=== PATIENT | female | born 1980 | race American Indian/Alaskan Native ===

== ENCOUNTER 2019-06-24 05:15 | Inpatient (IN) | payer MEDICAID ==
[2019-06-24] MEDS ORDERED: BICITRA ORAL LIQD 30ML PO ONE (05:43)
[2019-06-24] MEDS ORDERED: FAMOTIDINE 20 MG/2 ML INJ IV ONE (05:43)
[2019-06-24] MEDS ORDERED: METOCLOPRAMIDE 10 MG/2 ML INJ IV ONE (05:43)
[2019-06-24] MEDS ORDERED: OXYTOCIN 20 UNIT/1000ML DRIP 20 UNITS/1,000 ML BAG IV SCH ×2 (06:00→10:00)
[2019-06-24] MEDS ORDERED: ceFAZolin/Water 2 GM/20 ML 2 GM/20 ML SYRINGE IV NR (06:00)
[2019-06-24] MEDS ORDERED: LACTATED RINGERS 1,000 ML IV SCH (06:00)
[2019-06-24] MEDS ORDERED: hydrALAZINE 20 MG/1 ML INJ IV ONE (06:16)
[2019-06-24 06:21] LABS: Basophils % (Auto) 0.6 % (0.0-1.8); Eosinophils % (Auto) 0.4 % (0.0-4.3); Hematocrit 37.4 % (30.3-42.9); Hemoglobin 12.5 gm/dl (10.1-14.3); Lymphocytes # (Auto) 2.5 K/mm3 (1.2-5.4); Lymphocytes % (Auto) 36.3 % (13.4-35.0); Mean Corpuscular HGB Conc 33 % (30-34); Mean Corpuscular Volume 90 fl (79-97); Monocytes # (Auto) 0.6 K/mm3 (0.0-0.8); Monocytes % (Auto) 9.2 % (0.0-7.3); Platelet Count 275 K/mm3 (140-440); Red Blood Count 4.17 M/mm3 (3.65-5.03); Red Cell Distribution Width 13.2 % (13.2-15.2)
[2019-06-24 07:04] LABS: Bacteria,Urine 1+ /HPF (Negative); Bilirubin,Urine NEG (Negative); Blood,Urine SM (Negative); Color,Urine Amber (Yellow); Mucus,Urine 2+ /HPF; Urobilinogen,Urine < 2.0 mg/dL (<2.0)
[2019-06-24 07:10] LABS: Protein,Urine 300 mg/dL mg/dL (Negative)
[2019-06-24] MEDS ORDERED: ONDANSETRON 4 MG/2 ML INJ IV PRN (07:23)
[2019-06-24] MEDS ORDERED: PROMETHAZINE 25 MG TAB PO PRN (07:23)
[2019-06-24] MEDS ORDERED: PROMETHAZINE 25 MG RECT SUPP PR PRN (07:23)
[2019-06-24] MEDS ORDERED: NALOXONE 0.4 MG/1 ML INJ IV PRN ×2 (07:23→09:48)
[2019-06-24] MEDS ORDERED: HYDROmorphone 1 MG/1 ML INJ IV PRN ×2 (07:23)
--- NOTE | 2019-06-24 07:23 | Anesthesia Day of Surgery ---
Anesthesia Day of Surgery - Day of Surgery Patient Examined: Yes Patient H&P Reviewed: Yes Patient is NPO: Yes Beta Blockers: Yes (<24hrs)
--- NOTE | 2019-06-24 07:23 | Anesthesia Consultation ---
Anesthesia Consult and Med Hx Date of service: 06/24/19 - Airway Anesthetic Teeth Evaluation: Good ROM Head & Neck: Adequate Mental/Hyoid Distance: Adequate Mallampati Class: Class II Intubation Access Assessment: Good - Pulmonary Exam CTA: Yes - Cardiac Exam Cardiac Exam: RRR - Pre-Operative Health Status ASA Pre-Surgery Classification: ASA2 Proposed Anesthetic Plan: Spinal - Pulmonary Hx Asthma: No COPD: No Hx Pneumonia: No - Cardiovascular System Hx Hypertension: Yes (gestational) - Central Nervous System Hx Seizures: No Hx Psychiatric Problems: No - Endocrine Hx Renal Disease: No Hx End Stage Renal Disease: No Hx Insulin Dependent Diabetes: Yes Hx Hypothyroidism: No Hx Hyperthyroidism: No - Hematic Hx Anemia: No Hx Sickle Cell Disease: No - Other Systems Hx Alcohol Use: No
[2019-06-24] MEDS ORDERED: DEXMEDETOMIDINE 200 MCG/2 ML VIAL IV ONE (07:33)
--- NOTE | 2019-06-24 07:35 | History and Physical Report ---
History of Present Illness Date of examination: 06/24/19 Date of admission: 06/24/19 05:15 Chief complaint: Repeat C Section with BTL History of present illness: Pt is a 38yo BF EDC 06/28/19; EGA 39 3/7 weeks presents for Repeat C Section with permanent sterilization. She received late care at [facility] since 16 weeks and co-managed by [facility] for AMA, Morbid obesity, Chronic hypertension and Gestational Diabetes on insulin. re cords are available and GBS is Positive. Past History Past Medical History: hypertension, diabetes Past Surgical History: section Family/Genetic History: none Social history: no significant social history, single - Obstetrical History Expected Date of Delivery: 06/28/19 Actual Gestation: 39 Week(s) 3 Day(s) : 2 Medications and Allergies Allergies Allergy/AdvReac Type Severity Reaction Status Date / Time No Known Allergies Allergy Verified 06/24/19 05:53 Home Medications Medication Instructions Recorded Confirmed Last Taken Type Aspirin [Adult Aspirin] 1 tab PO DAILY 06/24/19 06/24/19 06/23/19 08:30 History Labetalol [Labetalol 100mg TAB] 1 tab PO BID 06/24/19 06/24/19 06/23/19 20:30 History Metformin HCl [metFORMIN] 1 tab PO DAILY 06/24/19 06/24/19 06/23/19 20:30 History Vit-Fe Fumar-FA [ 1 tab PO DAILY 06/24/19 06/24/19 06/23/19 08:30 History Vitamin] amLODIPine [Norvasc] 1 tab PO DAILY 06/24/19 06/24/19 06/23/19 08:30 History Active Meds: Active Medications Hydromorphone HCl (Dilaudid) 0.5 mg IV Q5M PRN PRN Reason: BREAK Hydromorphone HCl (Dilaudid) 0.5 mg IV Q4H PRN PRN Reason: breakthrough pain > 7/10 Oxytocin/Sodium Chloride (Pitocin/Ns 20 Unit/1000ml Drip) 20 units in 1,000 mls @ 0 mls/hr IV TITR LAUREL Lactated Ringer's (Lactated Ringers) 1,000 mls @ 2,250 mls/hr IV PREOP LAUREL Stop: 06/25/19 06:27 Last Admin: 06/24/19 06:00 Dose: 2,250 mls/hr Documented by: Naloxone HCl (Narcan 0.4 Mg/1 Ml) 0.2 mg IV Q2MIN PRN PRN Reason: Res Rate </= 8 or 02 SAT < 92% Ondansetron HCl (Zofran) 4 mg IV Q8H PRN PRN Reason: Nausea And Vomiting Promethazine HCl (Phenergan) 25 mg PO Q6H PRN PRN Reason: Nausea And Vomiting Promethazine HCl (Phenergan) 25 mg [place] Q6H PRN PRN Reason: Nausea And Vomiting Sodium Chloride (Sodium Chloride Flush Syringe 10 Ml) 10 ml IV PRN NR Review of Systems All systems: negative - Vital Signs Vital signs: Vital Signs Pulse BP 109 H 142/100 06/24/19 05:32 06/24/19 05:32 Temp Pulse Resp BP Pulse Ox 98.2 F 99 H 18 154/81 06/24/19 05:33 06/24/19 07:21 06/24/19 05:33 06/24/19 07:21 - Physical Exam Breasts: Positive: deferred Cardiovascular: Regular rate Lungs: Positive: Clear to auscultation Abdomen: Positive: normal appearance Genitourinary (Female): Positive: normal external genitalia Uterus: Positive: enlarged Extremities: Positive: normal - Obstetrical FHR: category 1 Uterine Contraction Monitor Mode: External Uterine Contraction Pattern: Absent Results Result Diagrams: 06/24/19 06:00 Abnormal lab results 06/24/19 06/24/19 06/24/19 Range/Units 06:00 06:28 06:30 Lymph % (Auto) 36.3 H (13.4-35.0) % [place] % (Auto) 9.2 H (0.0-7.3) % POC Glucose 182 H (70-105) Ur Specific [place] 1.032 H (1.003-1.030) Urine WBC (Auto) 10.0 H (0.0-6.0) /HPF All other labs normal. Assessment and Plan - Patient Problems (1) 39 weeks gestation of Onset Date: 06/24/19 Current Visit: Yes Status: Acute Plan to address problem: A: IUP @ 39 3/7 weeks Previous C Section Chronic hypertension Gestational Diabetes Mellitus AMA Desires permanent sterilization P: Admit to L&D for a Repeat C Section with Bilateral Tubal Ligation (2) AMA (advanced maternal age) multigravida 35+ Onset Date: 06/24/19 Current Visit: Yes Status: Chronic Qualifiers: Trimester: third trimester Qualified Code(s): O09.523 - Supervision of elderly multigravida, third trimester (3) Morbid obesity with BMI of 45.0-49.9, adult Onset Date: 06/24/19 Current Visit: Yes Status: Chronic (4) Hypertension affecting in third trimester Onset Date: 06/24/19 Current Visit: Yes Status: Chronic (5) GDM, class A2 Onset Date: 06/24/19 Current Visit: Yes Status: Chronic (6) Previous section complicating Onset Date: 06/24/19 Current Visit: Yes Status: Resolved
[2019-06-24] MEDS ORDERED: PHENYLEPHRINE/NS 1,000 MCG/10 ML SYRINGE (OR USE) IV ONE (09:35)
[2019-06-24] MEDS ORDERED: KETOROLAC 30 MG/1 ML INJ ONE (09:35)
[2019-06-24] MEDS ORDERED: diphenhydrAMINE 50 MG/ML VIAL ONE (09:35)
[2019-06-24] MEDS ORDERED: HYDROmorphone 1 MG/1 ML INJ ONE (09:36)
--- NOTE | 2019-06-24 09:47 | Operative Report ---
Operative Report Operative Report: Date of procedure: 06/24/2019 Pre-operative diagnosis: 1. Intrauterine at 39 3/7 weeks 2. Previ ous C Section 3. Chronic hypertension 4. Gestational Diabetes Mellitus 5. Advanced Maternal Age 6. Desires permanent sterilization Post-operative diagnosis: Same with lower uterine segment adhesions Procedure name(s): 1. Repeat low transverse section 2. Bilateral Tubal Ligation Surgeon: Prabhjot Shah MD Parts Sales Counterperson: None Anesthesia: Spinal anesthesia by Zelalem Polanco CRNA EBL: 400 mL's Findings: A 2377g female infant Apgars 8 at 1 minute and 9 at 5 minutes. Clear amniotic fluid. Normal uterus with lower uterine segment adhesions. Normal tubes and ovaries bilaterally. Procedure: After the patient was prepped and draped in usual sterile fashion, and after satisfactory level of epidural anesthesia was obtained, the skin knife was used to make a transverse skin incision through the previous skin scar. The incision was excised down to layer of the fascia, which was nicked in the midline and extended laterally using the Bovie cautery. The rectus muscles were dissected off the rectus fascia both superiorly and inferiorly. The rectus bellies in the midline, and the peritoneum was entered under direct visualization. The peritoneal incision was extended superiorly and inferiorly. The lower uterine adhesions were taken down using both sharp and blunt dissection. A bladder flap was created and the bladder blade was then placed. The uterus was scored in a curvilinear linear fashion, entered in the midline revealing clear amniotic fluid. The 's head was delivered onto the surgical field with the aid of a vacuum, and the oropharynx and nasopharynx were bulb suctioned. The rest of the 's body was delivered, cord was doubly clamped and cut and the was handed to the waiting respiratory team. Cord blood was then obtained. The placenta was manually removed from the uterus, and the uterus removed from its normal anatomical position. After gentle uterine lavage, the incision was inspected and found to be without extensions. It was then closed in 2 layers using 0 Vicryl suture in a running interlocking fashion, the second layer imbricating the first. After good hemostasis was achieved, copious amounts or irrigation was performed, and the gutters were suctioned free of blood and blood clots. Attention was then turned to the tubal ligation. First the left fallopian tube was grasped using a Rhodhiss, and the Filsche clip was applied to the proximal portion of the left tube. Next the right fallopian tube was grasped using the Rhodhiss, and the Filsche clip was applied to the proximal portion of the tube. The Tisseel sealant was sprayed across the uterine incision, and excellent hemostasis was assured. The uterus was then returned to its normal anatomical position, and after excellent hemostasis assured, the peritoneum was re-approximated using 3-0 Vicryl suture in a running interlocking fashion, and then the rectus muscles were re-approximated using 3-0 Vicryl suture in a [id number] configuration. The fascia was then re-approximated using 0 Vicryl suture in running interlocking fashion. The subcutaneous layer was made hemostatic using Bovie cautery, and the skin edges re-approximated us ing 4-0 Vicryl suture in a sub-cuticular fashion. Patient tolerated the procedure well was transported to recovery in stable condition.
[2019-06-24] MEDS ORDERED: LANOLIN/ZINC/DIMETHICONE (LANSINOH) 7 GM TP PRN (09:48)
[2019-06-24] MEDS ORDERED: DEXTROSE 50% IN WATER (25GM) 50 ML SYRINGE IV PRN (09:48)
[2019-06-24] MEDS ORDERED: SIMETHICONE 80 MG CHEW TAB PO PRN (09:48)
[2019-06-24] MEDS ORDERED: ACETAMINOPHEN 325 MG TAB PO PRN (09:48)
[2019-06-24] MEDS ORDERED: WITCH HAZEL/ GLYCERIN PAD TP PRN (09:48)
[2019-06-24] MEDS ORDERED: HYDROcodone/ACETAMINOPHEN 5-325 MG TAB PO PRN (09:48)
[2019-06-24] MEDS ORDERED: KETOROLAC 30 MG/1 ML INJ IV PRN (09:48)
[2019-06-24] MEDS: amLODIPine 10 MG TAB PO SCH (19:45)
[2019-06-24 20:24] LABS: Hematocrit 34.3 % (30.3-42.9); Hemoglobin 11.4 gm/dl (10.1-14.3)
[2019-06-24] MEDS: D5W/LACTATED RINGERS 1,000 ML IV SCH (21:06)
[2019-06-24] MEDS: ceFAZolin/NS 1 GM/50 ML 1 GM/50 ML BAG IV SCH (21:06)
[2019-06-24] MEDS: IBUPROFEN 800 MG TAB PO PRN (21:07)
[2019-06-24] MEDS ORDERED: MAGNESIUM HYDROXIDE (MOM) ORAL LIQD UDC PO PRN (22:00)
[2019-06-24] MEDS ORDERED: SENNOSIDES 8.6 MG TAB PO PRN (22:00)
[2019-06-24] MEDS: INSULIN REGULAR, HUMAN 100 UNITS/1 ML SUB-Q SCH (22:49)
[2019-06-25] MEDS: D5W/LACTATED RINGERS 1,000 ML IV SCH (05:22)
[2019-06-25] MEDS: ceFAZolin/NS 1 GM/50 ML 1 GM/50 ML BAG IV SCH (05:26)
[2019-06-25] MEDS: INSULIN REGULAR, HUMAN 100 UNITS/1 ML SUB-Q SCH ×5 (08:00→23:57)
[2019-06-25] MEDS: oxyCODONE /ACETAMINOPHEN 5-325MG TAB PO PRN ×3 (08:13→21:59)
--- NOTE | 2019-06-25 09:31 | Progress Note ---
Assessment and Plan - Patient Problems (1) 39 weeks gestation of Onset Date: 06/24/19 Current Visit: Yes Status: Resolved (2) AMA (advanced maternal age) multigravida 35+ Onset Date: 06/24/19 Current Visit: Yes Status: Chronic Qualifiers: Trimester: third trimester Qualified Code(s): O09.523 - Supervision of elderly multigravida, third trimester (3) Morbid obesity with BMI of 45.0-49.9, adult Onset Date: 06/24/19 Current Visit: Yes Status: Chronic (4) Hypertension affecting in third trimester Onset Date: 06/24/19 Current Visit: Yes Status: Resolved (5) GDM, class A2 Onset Date: 06/24/19 Current Visit: Yes Status: Resolved (6) Previous section complicating Onset Date: 06/24/19 Current Visit: Yes Status: Resolved (7) Status post Onset Date: 06/25/19 Current Visit: Yes Status: Resolved Plan to address problem: A: S/P Repeat C Section with BTL - POD #1 Doing well Asymptomatic anemia - stable Chronic hypertension - stable GDM - stable P: Continue RPOC Anticipate discharge in 24-48hrs Subjective - Subjective Date of service: 06/25/19 Principal diagnosis: s/p Repeat C Section - POD #1 Interval history: Pt is feeling well without complaints. She is tolerating a reg diet without n ausea or vomiting, ambulating and voiding without difficulty. Patient reports: appetite normal, voiding normally, pain well controlled, ambulating normally, no dizzy ambulation, no flatus, no nauseated : doing well, bottle feeding Objective - Vital Signs Latest vital signs: Vital Signs Temp Pulse Resp BP BP Pulse Ox 06/25/19 05:30 98.4 F 78 18 140/78 06/25/19 00:00 98.4 F 62 16 121/72 06/24/19 23:44 101 H 139/87 06/24/19 21:08 99 H 163/92 06/24/19 20:00 98.7 F 90 18 163/92 06/24/19 16:08 99.2 F 93 H 18 151/96 96 Intake and Output 06/24/19 06/25/19 06/25/19 22:59 06:59 14:59 Intake Total 50 1600 Output Total 700 1400 Balance -650 200 Intake: IV 50 1000 ANCEF/NS 1 GM/50 ML 1 gm 50 In 50 ml @ 100 mls/hr IV Q8H LAUREL Rx#:[id number] 1,000 ml @ 125 mls/ 1000 hr IV DIRECT LAUREL Rx#: [id number] Intake, Free Water 600 Output: Urine 700 1400 Indwelling Catheter 700 Void 1400 Other: Total, Output Amount 700 800 # Voids Void 1 - Exam Breasts: Present: deferred Abdomen: Present: normal appearance, soft Uterus: Present: normal, firm, fundal height below umbilicus Extremities: Present: normal Incision: Present: normal, dry, intact, dressed - Labs Labs: Abnormal lab results 06/24/19 06/24/19 Range/Units 10:04 22:49 POC Glucose 216 H (70-105) Lactate Dehydrogenase 230 H (91-180) units/L Laboratory Tests 06/24/19 06/24/19 06/24/19 06:00 06:00 06:00 WBC 6.8 RBC 4.17 Hgb 12.5 Hct 37.4 MCV 90 MCH 30 MCHC 33 RDW 13.2 Plt Count 275 Lymph % (Auto) 36.3 H [place] % (Auto) 9.2 H Eos % (Auto) 0.4 Baso % (Auto) 0.6 Lymph # 2.5 [place] # 0.6 Eos # 0.0 Baso # 0.0 Seg Neutrophils % 53.5 Seg Neutrophils # 3.6 POC Glucose Lactate Dehydrogenase Urine Color Urine Turbidity Urine pH Ur Specific [place] Urine Protein Urine Glucose (UA) Urine Ketones Urine Blood Urine Nitrite Urine Bilirubin Urine Urobilinogen Ur Leukocyte Esterase Urine WBC (Auto) Urine RBC (Auto) U Epithel Cells (Auto) Urine Bacteria (Auto) Urine Mucus RPR Nonreactive Hep Bs Antigen Blood Type O POSITIVE Antibody Screen Negative 06/24/19 06/24/19 06/24/19 06:28 06:30 10:04 WBC RBC Hgb Hct MCV MCH MCHC RDW Plt Count Lymph % (Auto) [place] % (Auto) Eos % (Auto) Baso % (Auto) Lymph # [place] # Eos # Baso # Seg Neutrophils % Seg Neutrophils # POC Glucose 182 H Lactate Dehydrogenase 230 H Urine Color Lu Urine Turbidity Slightly-cloudy Urine pH 5.0 Ur Specific [place] 1.032 H Urine Protein 300 mg/dl Urine Glucose (UA) 150 Urine Ketones Tr Urine Blood Sm Urine Nitrite Neg Urine Bilirubin Neg Urine Urobilinogen < 2.0 Ur Leukocyte Esterase Tr Urine WBC (Auto) 10.0 H Urine RBC (Auto) 8.0 U Epithel Cells (Auto) 13.0 Urine Bacteria (Auto) 1+ Urine Mucus 2+ RPR Hep Bs Antigen Blood Type Antibody Screen 06/24/19 06/24/19 06/24/19 20:13 20:13 22:49 WBC RBC Hgb 11.4 Hct 34.3 MCV MCH MCHC RDW Plt Count Lymph % (Auto) [place] % (Auto) Eos % (Auto) Baso % (Auto) Lymph # [place] # Eos # Baso # Seg Neutrophils % Seg Neutrophils # POC Glucose 216 H Lactate Dehydrogenase Urine Color Urine Turbidity Urine pH Ur Specific [place] Urine Protein Urine Glucose (UA) Urine Ketones Urine Blood Urine Nitrite Urine Bilirubin Urine Urobilinogen Ur Leukocyte Esterase Urine WBC (Auto) Urine RBC (Auto) U Epithel Cells (Auto) Urine Bacteria (Auto) Urine Mucus RPR Hep Bs Antigen Non-reactive Blood Type Antibody Screen
[2019-06-25] MEDS: PRENATAL VIT27-FE FUMARATE-FOLIC ACID VIT TAB PO SCH (10:35)
[2019-06-25] MEDS: FERROUS SULFATE 325 MG TAB PO SCH (10:36)
[2019-06-25] MEDS: amLODIPine 10 MG TAB PO SCH (10:36)
[2019-06-25] MEDS ORDERED: TETANUS,DIPH,PERTUSS(ACELL) VACCINE 0.5 ML SYRINGE IM ONE (12:00)
[2019-06-25] MEDS ORDERED: MEASLES, MUMPS & RUBELLA 12,500 UNIT/0.5 ML VACCINE SUB-Q ONE (12:00)
[2019-06-25] MEDS: IBUPROFEN 800 MG TAB PO PRN (12:12)
[2019-06-26] MEDS: oxyCODONE /ACETAMINOPHEN 5-325MG TAB PO PRN (05:42)
[2019-06-26] MEDS: PRENATAL VIT27-FE FUMARATE-FOLIC ACID VIT TAB PO SCH (09:22)
[2019-06-26] MEDS: FERROUS SULFATE 325 MG TAB PO SCH (09:22)
[2019-06-26 09:27] VITALS: BP 147/86
[2019-06-26] MEDS: amLODIPine 10 MG TAB PO SCH (09:27)
--- NOTE | 2019-06-26 09:53 | Progress Note ---
Assessment and Plan - Patient Problems (1) 39 weeks gestation of Onset Date: 06/24/19 Current Visit: Yes Status: Resolved (2) AMA (advanced maternal age) multigravida 35+ Onset Date: 06/24/19 Current Visit: Yes Status: Chronic Qualifiers: Trimester: third trimester Qualified Code(s): O09.523 - Supervision of elderly multigravida, third trimester (3) Morbid obesity with BMI of 45.0-49.9, adult Onset Date: 06/24/19 Current Visit: Yes Status: Chronic (4) Hypertension affecting in third trimester Onset Date: 06/24/19 Current Visit: Yes Status: Resolved (5) GDM, class A2 Onset Date: 06/24/19 Current Visit: Yes Status: Resolved (6) Previous section complicating Onset Date: 06/24/19 Current Visit: Yes Status: Resolved (7) Status post Onset Date: 06/25/19 Current Visit: Yes Status: Resolved Plan to address problem: A: S/P Repeat C Section with BTL - POD #2 Doing well Asymptomatic anemia - stable Chronic hypertension - stable GDM - stable P: May go home today. Subjective - Subjective Date of service: 06/26/19 Principal diagnosis: s/p Repeat C Section - POD #2 Interval history: Pt is feeling well without complaints. She is tolerating a reg diet without nausea or vomiting, ambulating and voiding without difficulty. Wants to home today. Patient reports: appetite normal, voiding normally, pain well controlled, flatus, ambulating normally, no dizzy ambulation, no nauseated : doing well, nursing well, bottle feeding Objective - Vital Signs Latest vital signs: Vital Signs Temp Pulse Resp BP Pulse Ox 06/26/19 09:27 147/86 06/26/19 09:22 147/86 06/26/19 07:32 97.9 F 103 H 18 143/81 98 06/26/19 06:42 18 06/26/19 05:42 18 06/26/19 00:48 98.5 F 100 H 22 137/80 99 06/25/19 22:59 18 06/25/19 21:59 18 06/25/19 21:30 112 H 165/97 06/25/19 21:29 165/97 06/25/19 13:56 71 118/75 100 06/25/19 12:53 108 H 18 147/91 94 Intake and Output 06/25/19 06/26/19 06/26/19 22:59 06:59 14:59 Intake Total 480 480 Balance 480 480 Intake: Intake, Free Water 480 480 Other: # Voids Void 3 2 - Exam Abdomen: Present: normal appearance, soft Uterus: Present: normal, firm, fundal height below umbilicus Extremities: Present: normal Incision: Present: normal, dry, intact - Labs Labs: Abnormal lab results 06/25/19 06/25/19 06/25/19 Range/Units 07:55 12:21 18:38 POC Glucose 242 H 187 H 266 H (70-105) 06/25/19 06/26/19 Range/Units 22:20 07:37 POC Glucose 181 H 145 H (70-105)
[2019-06-26] MEDS: IBUPROFEN 800 MG TAB PO PRN (11:56)
[2019-06-26] MEDS: INSULIN REGULAR, HUMAN 100 UNITS/1 ML SUB-Q SCH (12:38)
--- NOTE | 2019-06-26 13:43 | Discharge Summary ---
Providers - Providers Date of Admission: 06/24/19 05:15 Date of discharge: 06/26/19 Attending physician: INDIGO BARRIOS Primary care physician: INDIGO BARRIOS Hospitalization Reason for admission: section, IUP at term, other (Chronic hypertension; Gestational Diabetes Mellitus; AMA; Desires sterilization) Delivery: Procedure: section, bilateral tubal ligation, repeat low transverse Episiotomy: none Laceration: none Incision: normal, dry, intact Other procedures: tubal ligation complications: none Discharge diagnosis: IUP at term delivered baby: female Hospital course: Pt is a 38yo BF EDC 06/28/19; EGA 39 3/7 weeks who presented for Repeat C Section with permanent sterilization. She received late care at [facility] since 16 weeks and co-managed by [facility] for AMA, Morbid obesity, Chronic hypertension and Gestational Diabetes on insulin. She underwent an uncomplicated Repeat C Section with Bilateral Tubal Ligation. By POD #2 she was tolerating a reg diet without nausea or vomiting, ambulating and voiding without difficulty. She was therefore discharged to home on POD #2 in stable condition. She will follow up in the office in 1 week for BP check and 2 weeks for incision check. Condition at discharge: Good Disposition: DC-01 TO HOME OR SELFCARE - Discharge Diagnoses (1) 39 weeks gestation of Status: Resolved (2) AMA (advanced maternal age) multigravida 35+ Status: Chronic Qualifiers: Trimester: third trimester Qualified Code(s): O09.523 - Supervision of elderly multigravida, third trimester (3) Morbid obesity with BMI of 45.0-49.9, adult Status: Chronic (4) Hypertension affecting in third trimester Status: Resolved (5) GDM, class A2 Status: Resolved (6) Previous section complicating Status: Resolved (7) Status post Status: Resolved Plan - Discharge Medications Prescriptions: Ferrous Sulfate [Feosol 325 MG tab] 325 mg PO BID #60 tablet Labetalol [Labetalol 100mg TAB] 100 mg PO BID #60 tablet Ibuprofen [Motrin 800 MG tab] 800 mg PO Q6H PRN #30 tablet PRN Reason: Pain, Mild (1-3) HYDROcodone/APAP 5-325 [Lapine 5-325 mg TAB] 1 each PO Q6HR PRN #30 tablet PRN Reason: Pain, Moderate (4-6) amLODIPine [Norvasc] 10 mg PO QDAY #30 tablet Vit-Fe Fumar-FA [ Vitamin] 1 each PO QDAY #30 tablet - Provider Discharge Summary Activity: routine, no sex for 6 weeks, no heavy lifting 4 weeks, no strenuous exercise Diet: routine Instructions: routine Additional instructions: [] Smoking cessation referral if applicable(refer to patient education folder for contact #) [] Refer to [facility]'s [facility] Booklet Call your doctor immediately for: * Fever > 100.5 * Heavy vaginal bleeding ( >1 pad per hour) * Severe persistent headache * Shortness of breath * Reddened, hot, painful area to leg or breast * Drainage or odor from incision. * Keep incision clean and dry at all times and follow doctor's instructions regarding bathing/showering Follow up in office in 1 week for BP check - Follow up plan Follow up: INDIGO BARRIOS MD [Primary Care Provider] - 7 Days Forms: [facility] Discharge Summary, Discharge Signature Page
== END 2019-06-26 14:50 | disposition home or self-care (01) | DRG 765 ==
LOC: APU 05:15 → OB 11:53
PROVIDERS: ADMIT Obstetrics & Gynecology; ATTEND Obstetrics & Gynecology
PROC: 10D00Z1 Extraction of Products of Conception, Low, Open Approach (ICD-10-PCS; principal; 2019-06-24)
PROC: 0UL70CZ Occlusion of Bilateral Fallopian Tubes with Extraluminal Device, Open Approach (ICD-10-PCS; 2019-06-24)
PROC: 3E0234Z Introduction of Serum, Toxoid and Vaccine into Muscle, Percutaneous Approach (ICD-10-PCS; 2019-06-25)
DX: O34.211 Maternal care for low transverse scar from previous cesarean delivery (principal); O10.92 Unspecified pre-existing hypertension complicating childbirth; E66.01 Morbid (severe) obesity due to excess calories; O24.429 Gestational diabetes mellitus in childbirth, unspecified control; O99.214 Obesity complicating childbirth; Z3A.39 39 weeks gestation of pregnancy; Z37.0 Single live birth; Z71.3 Dietary counseling and surveillance; Z79.4 Long term (current) use of insulin; Z79.82 Long term (current) use of aspirin; Z79.899 Other long term (current) drug therapy; Z23 Encounter for immunization
CPT/HCPCS: 36415; 81001; 82962; 83615; 85014; 85018; 85025; 86592; 86706; 86850; 86900; 86901; 87086; 88307; G0378; J0360; J0690; J1170; J1200; J1815; J1885; J2370; J2405; J2590; J2765; J3490; J7120; J7121